=== PATIENT | male | born 1945 | race Caucasian/White ===

== ENCOUNTER 2024-04-19 16:04 | Emergency (ER) | payer BC ==
[~2024-04-19] VITALS: Ht 182.9 cm; Wt 79.4 kg
[2024-04-19 16:12] VITALS: TEMP 97.9
[2024-04-19 19:37] VITALS: BP 133/76
[2024-04-19 19:40] VITALS: O2SAT 99
[2024-04-19 20:45] LABS: APPEARANCE,URINE CLOUDY (CLEAR); BILIRUBIN,URINE NEGATIVE (NEGATIVE); BLOOD, URINE 3+ Ery/uL (NEGATIVE); COLOR,URINE DARK YELLOW (YELLOW); KETONES,URINE NEGATIVE (NEGATIVE); LEUKOCYTE ESTERASE ,URINE 1+ (NEGATIVE); NITRITE, URINE NEGATIVE (NEGATIVE); PROTEIN,URINE 3+ mg/dl (NEGATIVE); UGLUCOSE NEGATIVE (NEGATIVE)
[2024-04-19 20:51] LABS: RBC,URINE TOO NUMEROUS TO COUN /HPF (0-2); WBC,URINE 51-80 /HPF (0-3)
[2024-04-19 20:52] LABS: ADD URINE CULTURE YES; BACTERIA,URINE Few /HPF (None Seen); SQUAMOUS EPITHELIAL CELL,UR None Seen /HPF (None Seen)
[2024-04-19] MEDS ORDERED: CIPR-263 PO (21:15)
== END 2024-04-19 20:55 | disposition home or self-care (01) ==
LOC: ER 16:18
DX: T83.098A Other mechanical complication of other urinary catheter, initial encounter (principal); E78.5 Hyperlipidemia, unspecified; I10 Essential (primary) hypertension; I48.91 Unspecified atrial fibrillation; K21.9 Gastro-esophageal reflux disease without esophagitis; Z46.6 Encounter for fitting and adjustment of urinary device; Z87.440 Personal history of urinary (tract) infections; Y84.6 Urinary catheterization as the cause of abnormal reaction of the patient, or of later complication, without mention of misadventure at the time of the procedure; Y92.89 Other specified places as the place of occurrence of the external cause
CPT/HCPCS: 81001; 87086-TC